=== PATIENT | female | born 1975 | race Caucasian/White ===

== ENCOUNTER → 2020-05-31 08:30 | Outpatient (CLI) | payer OTHER, SELFPAY | PROVIDERS: PCP Nurse Practitioner Family; Visit Provider Physician Assistant | DX: N89.8 Other specified noninflammatory disorders of vagina (principal) | CPT/HCPCS: 87210 ==

== ENCOUNTER → 2020-05-31 08:55 | Outpatient (CLI) | payer OTHER, SELFPAY ==
[2020-05-31 16:16] LABS: HIV 1 & 2 Ab/Ag 4th Gen Combo NEGATIVE (NEGATIVE)
[2020-06-01 05:12] LABS: RPR Screen Non Reactive (Non Reactive)
[2020-06-01 05:36] LABS: HBsAg Screen Negative (Negative); Hepatitis A Antibody IgM Negative (Negative); Hepatitis B Core Antibody IgM Negative (Negative); Hepatitis C Antibody 0.1 s/co ratio (0.0-0.9)
[2020-06-01 15:17] LABS: HSV Type 1 AB, IgG 1.01 index (0.00-0.90)
[2020-06-01 19:12] LABS: HSV I/II IgM <0.91 Ratio (0.00-0.90)
== END ==
PROVIDERS: PCP Nurse Practitioner Family; Referring Provider Physician Assistant; Visit Provider Physician Assistant
DX: N89.8 Other specified noninflammatory disorders of vagina (principal)
CPT/HCPCS: 36415; 80074; 86592; 86694; 86695; 87210; 87389; 87491; 87591

== ENCOUNTER → 2021-01-03 11:59 | Outpatient (CLI) | payer OTHER, SELFPAY ==
--- NOTE | 2021-01-03 12:00 | DI.RAD.S_ITS ---
PROCEDURE: XR KNEE RT 3V INDICATIONS: fall, right knee injury, r/o bony abnromality TECHNIQUE: 3 views of the knee were acquired. COMPARISON: None. FINDINGS: Bones: No fractures or dislocations. No suspicious bony lesions. Soft tissues: Small to moderate suprapatellar joint effusion is seen. No suspicious soft tissue calcifications. IMPRESSION: No acute right knee fracture or dislocation. Small to moderate suprapatellar joint effusion. Dictated by: Laith Montana M.D. on 01/03/2021 at 12:42 Approved by: Laith Montana M.D. on 01/03/2021 at 12:43
== END ==
PROVIDERS: PCP Registered Nurse Diabetes Educator; Referring Provider Physician Assistant; Visit Provider Physician Assistant
DX: S89.91XA Unspecified injury of right lower leg, initial encounter (principal); M25.461 Effusion, right knee; W19.XXXA Unspecified fall, initial encounter
CPT/HCPCS: 73562